=== PATIENT | male | born 1935 | race Caucasian/White ===

== ENCOUNTER → 2019-05-03 | Outpatient (CLI) | payer MEDICARE, OTHER ==
[~2019-05-03] MED LIST: ASPI81CH PO
[2019-05-06 11:07] LABS: M-SPIKE, % Not Observed % (Not Observed); PROTEIN,TOTAL,URINE 4.7 mg/dL (Not Estab.)
== END | disposition home or self-care (01) ==
LOC: LAB 05:00 → LAB SHORT 05:00 → LAB FUT 04-28 13:30
PROVIDERS: Internal Medicine
DX: D47.2 Monoclonal gammopathy (principal)
CPT/HCPCS: 81050; 84166; 86335

== ENCOUNTER 2020-10-20 11:18 | Inpatient (IN) | payer MEDICARE, OTHER ==
[~2020-10-20] VITALS: Ht 167.6 cm; Wt 54.4 kg
[~2020-10-20 11:18] MED LIST changes: +AMOCLA875 PO
[2020-10-20 12:43] LABS: BASOPHILS ABSOLUTE AUTO 0.03 K/mm3 (0.00-0.23); BASOPHILS PERCENT AUTO 0 % (0-2); EOSINOPHILS ABSOLUTE AUTO 0.21 K/mm3 (0.00-0.68); EOSINOPHILS PERCENT AUTO 2 % (0-6); Hematocrit 36.7 % (37.0-53.0); Hemoglobin 11.7 g/dL (13.5-17.5); IMMATURE GRAN ABSOLUTE AUTO 0.07 K/mm3 (0.00-0.10); IMMATURE GRAN PERCENT AUTO 1 % (0-1); LYMPHOCYTES ABSOLUTE AUTO 1.78 K/mm3 (0.84-5.20); LYMPHOCYTES PERCENT AUTO 18 % (21-46); MONOCYTES ABSOLUTE AUTO 0.69 K/mm3 (0.16-1.47); MONOCYTES PERCENT AUTO 7 % (4-13); Mean Corpuscular HGB 30.2 pg (26.0-34.0); Mean Corpuscular HGB Conc 31.9 g/dL (31.5-36.5); Mean Corpuscular Volume 95 fL (80-100); Mean Platelet Volume 10.8 fL (9.1-12.4); NEUTROPHILS ABSOLUTE AUTO 7.03 K/mm3 (1.96-9.15); NEUTROPHILS PERCENT AUTO 72 % (41-73); Platelet Count 651 K/mm3 (150-400); RDW Coefficient Variation 13.8 % (11.7-14.2); RDW Standard Deviation 48.2 fL (35.1-46.3); Red Blood Cell Count 3.87 M/mm3 (4.30-5.90); White Blood Cell Count 9.81 K/mm3 (4.00-11.30)
[2020-10-20 12:58] LABS: International Normalized Ratio 1.23
[2020-10-20 13:07] LABS: Alanine Aminotransfer (ALT/SGP 13 U/L (12-78); Albumin, Blood 2.7 g/dL (3.4-5.0); Albumin/Globulin Ratio 0.6 (0.8-1.8); Alk Phos 65 U/L (50-136); Anion Gap 6 mmol/L (6-16); Aspartate Aminotrans (AST/SGOT 7 U/L (12-37); Bilirubin, Total 0.5 mg/dL (0.1-1.0); Blood Urea Nitrogen 16 mg/dL (8-24); Bun/Creatinine Ratio 21.4 (12.0-20.0); CO2, Blood 29 mmol/L (21-32); Calcium, Blood 8.9 mg/dL (8.5-10.1); Chloride, Blood 104 mmol/L (98-108); Creatinine, Blood 0.75 mg/dL (0.60-1.20); Globulin, Blood 4.6 g/dL (2.2-4.0); Glomerular Filtration Rate >60 (60-); Glucose, Blood 88 mg/dL (70-99); Potassium, Blood 3.3 mmol/L (3.5-5.5); Sodium, Blood 139 mmol/L (136-145); Total Protein, Blood 7.3 g/dL (6.4-8.2)
[2020-10-20 13:17] LABS: Influenza A, PCR NEGATIVE (NEGATIVE); Influenza B, PCR NEGATIVE (NEGATIVE); Resp Syncytial Virus, PCR NEGATIVE (NEGATIVE); SARS-Cov-2 (COVID-19) PCR, MMC NEGATIVE (NEGATIVE)
--- NOTE | 2020-10-20 13:42 | NUR ---
Patient up to Ambulate independently. Gait steady. History, Chart, Medications and Allergies reviewed before start of procedure.Lungs clear T/O to Auscultation. Patient confirms NPO status and agrees with scheduled surgery. ALL BELONINGS GIVEN TO DAUGHTER SONIA. SPOKE TO DR WOOD REGARDING CONCERNS OF PLATELET COUNT. NO NEW ORDERS.
--- NOTE | 2020-10-20 16:27 | NUR ---
FOLOEY DRAINED WHEN HE CAME TO PACU 700 ML OF MOD DARK URINE
--- NOTE | 2020-10-20 16:38 | NUR ---
OSTOMY WITH DEEP RED/PURPLE STOMA SMALL AMOUNHT CLEAR LIQUIED IN OSTOMY BAG
--- NOTE | 2020-10-20 17:40 | NUR ---
ARRIVAL TO UNIT PT ARRIVED TO UNIT VIA GURNEY. PT STOOD AND TRANSFERED TO BED. PT REPORTED SLIGHT ABDOMINAL PAIN WITH MOVEMENT BUT DECLINED NEEDING ANY PAIN MEDICATIONS. PT DENIES ANY SHORTNESS OF BREATH AND REMAINS ON RA. OSTOMY HAS RED LIQUID IN THE BAG, STOMA IS RED AND MOIST. SCANT SS DRAINAGE ON MIDLINE GAUZE. PARTIDA IN PLACE PATENT AND DRAINING. PT AA0X4, ORIENTED TO UNIT AND CALL LIGHT. WILL MONITOR FOR PAIN AND HAND OFF TO ONCOMING NURSE.
[2020-10-21 04:33] LABS: BASOPHILS ABSOLUTE AUTO 0.02 K/mm3 (0.00-0.23); BASOPHILS PERCENT AUTO 0 % (0-2); EOSINOPHILS PERCENT AUTO 0 % (0-6); Hematocrit 34.5 % (37.0-53.0); Hemoglobin 11.1 g/dL (13.5-17.5); IMMATURE GRAN ABSOLUTE AUTO 0.07 K/mm3 (0.00-0.10); IMMATURE GRAN PERCENT AUTO 1 % (0-1); LYMPHOCYTES ABSOLUTE AUTO 1.16 K/mm3 (0.84-5.20); LYMPHOCYTES PERCENT AUTO 9 % (21-46); MONOCYTES PERCENT AUTO 5 % (4-13); Mean Corpuscular HGB 30.2 pg (26.0-34.0); Mean Corpuscular HGB Conc 32.2 g/dL (31.5-36.5); Mean Corpuscular Volume 94 fL (80-100); Mean Platelet Volume 11.1 fL (9.1-12.4); NEUTROPHILS ABSOLUTE AUTO 10.97 K/mm3 (1.96-9.15); NEUTROPHILS PERCENT AUTO 86 % (41-73); Platelet Count 615 K/mm3 (150-400); RDW Coefficient Variation 13.9 % (11.7-14.2); Red Blood Cell Count 3.68 M/mm3 (4.30-5.90); White Blood Cell Count 12.82 K/mm3 (4.00-11.30)
--- NOTE | 2020-10-21 04:40 | NUR ---
SHIFT SUMMARY: PT POD#1 FOR SIGMOID COLECTOMY. SCANT AMOUNT OF SS NOTED ON MIDLINE DRESSING IN BEGINNING OF SHIFT. NEW DRESSING APPLIED USING GAUZE, ABD PAD AND MEDIPORE TAPE. FISTULA SITE TO LLQ DRAINING A YELLOW FOUL SMELLING FLUID. STOMA APPEARS WNL. COLOSTOMY APPLIANCE INTACT WITHOUT LEAKS. DRAINING A SCANT AMOUNT OF BROWNISH RED DRAINAGE. BOWEL TONES PRESENT TO RT QUADRANTS. PT NPO EXCEPT FOR ICE CHIPS. TOLERATING A SMALL AMOUNT. DENIES N/V THIS SHIFT. PAIN HAS BEEN MANAGED WITH 1MG OF DILAUDID PER EMAR. PARTIDA PATENT AND DRAINING CLEAR YELLOW URINE. 825CC EMPTIED THIS MORNING. IVF AND ABX INFUSING PER ORDERS. PT HAS BEEN A&O X4. PLEASANT AND COOPERATIVE WITH CARE. VS WNL T/O SHIFT.
[2020-10-21 04:50] LABS: Anion Gap 6 mmol/L (6-16); Blood Urea Nitrogen 13 mg/dL (8-24); CO2, Blood 29 mmol/L (21-32); Calcium, Blood 7.8 mg/dL (8.5-10.1); Chloride, Blood 105 mmol/L (98-108); Creatinine, Blood 0.68 mg/dL (0.60-1.20); Glomerular Filtration Rate >60 (60-); Glucose, Blood 111 mg/dL (70-99); Potassium, Blood 3.9 mmol/L (3.5-5.5); Sodium, Blood 140 mmol/L (136-145)
--- NOTE | 2020-10-21 18:06 | NUR ---
SHIFT SUMMARY NO ACUTE CHANGES THIS SHIFT. PT POD #1 FOR SIGMOID COLECTOMY AND I&D OF FISTULA. FISTULA SITE DRESSING CHANGED #2 THIS SHIFT. GAUZE WITH TAPE IN PLACE. MEDICATED FOR PAIN #1 THIS SHIFT. GOT UP TO THE CHAIR AND WALKED THE NAQVI W/OUT DIFFICULTY. A/O X4; PLEASANT AND COOPERATIVE WITH CARE. VSS. GETTING IV ANTIBIOTICS. WILL REPORT TO JOEL SHANNON.
--- NOTE | 2020-10-21 20:50 | NUR ---
PT UP IN BATHROOM, HAD DISCONNECTED IV LINE AND REMOVED PARTIDA STAT LOCK. PT SLIGHTLY UNSTEADY ON FEET. PT ASSISTED BACK TO BED, NEW IV TUBING AND STAT LOCK PLACED. PT EDUCATED ON FALL PRECAUTIONS AND IMPORTANCE OF CALLING FOR ASSISTANCE. BED ALARM PLACED FOR SAFETY.
--- NOTE | 2020-10-22 07:10 | NUR ---
POD 2 S/P COLECTOMY+COLOSTOMY. PT VSS T/O NIGHT. DRESSINGS INTACT W/NO VISIBLE DRNG NOTED. COLOSTOMY W/SCANT AMT LIQ BURGUNDY DRNG, NO FLATUS; STOMA WNL. BT ACTIVE, PT SIENNA CL PO, NO N/V. PT DENIED NEED FOR PAIN MEDS UNTIL THIS AM, 0.5MG DILAUDID GIVEN W/REP RELIEF. PARTIDA CATH D/C THIS AM, AWAITING VIANEY VOID. PT WAS INCREASINGLY CONFUSED T/O NIGHT, PT BECAME AGITATED THIS AM, WAS MORE DIFFICULT TO REORIENT. PT ASSISTED W/CALL TO DAUGHTER, HE APPEARED TO CALM DOWN WHILE TALKING TO HER. BEDSIDE REPORT GIVEN TO DAY RN. BED ALRM ON FOR SAFETY.
--- NOTE | 2020-10-22 19:22 | NUR ---
SHIFT SUMMARY NO ACUTE CHANGES THIS SHIFT. POD #2 FOR COLECTOMY WITH COLOSTOMY. DRESSINGS C/D/I. PT HAD EPISODES OF CONFUSION DURING THE NIGHT BUT HAS BEEN A/O X3 DURING THE DAY. SBA TO THE BATHROOM. C/O ISSUES WITH CHOKING/SWALLOWING FOOD. HE SAID THAT THIS ISSUE HAS BEEN PRESENT AT HOME WELL. REPORT GIVEN TO JOEL SHANNON.
[2020-10-23 04:44] LABS: BASOPHILS ABSOLUTE AUTO 0.02 K/mm3 (0.00-0.23); BASOPHILS PERCENT AUTO 0 % (0-2); EOSINOPHILS ABSOLUTE AUTO 0.21 K/mm3 (0.00-0.68); EOSINOPHILS PERCENT AUTO 3 % (0-6); Hematocrit 30.8 % (37.0-53.0); Hemoglobin 9.9 g/dL (13.5-17.5); IMMATURE GRAN ABSOLUTE AUTO 0.05 K/mm3 (0.00-0.10); IMMATURE GRAN PERCENT AUTO 1 % (0-1); LYMPHOCYTES ABSOLUTE AUTO 1.31 K/mm3 (0.84-5.20); LYMPHOCYTES PERCENT AUTO 17 % (21-46); MONOCYTES ABSOLUTE AUTO 0.43 K/mm3 (0.16-1.47); MONOCYTES PERCENT AUTO 6 % (4-13); Mean Corpuscular HGB 30.5 pg (26.0-34.0); Mean Corpuscular HGB Conc 32.1 g/dL (31.5-36.5); Mean Corpuscular Volume 95 fL (80-100); Mean Platelet Volume 10.5 fL (9.1-12.4); NEUTROPHILS ABSOLUTE AUTO 5.74 K/mm3 (1.96-9.15); NEUTROPHILS PERCENT AUTO 74 % (41-73); Platelet Count 592 K/mm3 (150-400); RDW Coefficient Variation 14.1 % (11.7-14.2); Red Blood Cell Count 3.25 M/mm3 (4.30-5.90); White Blood Cell Count 7.76 K/mm3 (4.00-11.30)
[2020-10-23 05:11] LABS: Alanine Aminotransfer (ALT/SGP 13 U/L (12-78); Albumin, Blood 1.8 g/dL (3.4-5.0); Albumin/Globulin Ratio 0.5 (0.8-1.8); Alk Phos 42 U/L (50-136); Anion Gap 3 mmol/L (6-16); Aspartate Aminotrans (AST/SGOT 14 U/L (12-37); Bilirubin, Total 0.8 mg/dL (0.1-1.0); Blood Urea Nitrogen 12 mg/dL (8-24); Bun/Creatinine Ratio 17.2 (12.0-20.0); CO2, Blood 30 mmol/L (21-32); Calcium, Blood 7.6 mg/dL (8.5-10.1); Chloride, Blood 111 mmol/L (98-108); Globulin, Blood 3.3 g/dL (2.2-4.0); Glomerular Filtration Rate >60 (60-); Glucose, Blood 95 mg/dL (70-99); Magnesium, Blood 2.1 mg/dL (1.6-2.4); Phosphorus, Blood 2.7 mg/dL (2.5-4.9); Potassium, Blood 3.5 mmol/L (3.5-5.5); Sodium, Blood 144 mmol/L (136-145); Total Protein, Blood 5.1 g/dL (6.4-8.2)
--- NOTE | 2020-10-23 05:57 | NUR ---
SHIFT SUMMARY LYING IN SEMI FOWLERS WITH EYES CLOSED. AAO X3, HILL, FOLLOWS ALL COMMANDS. HAS RESTED WELL THIS SHIFT. REITERATED NEED TO BURP OSTOMY BAG TO KEEP IT FROM BURSTING AWAY FROM HIS BODY, VOICES UNDERSTATNDING. ABLE TO RETURN DEMONSTRATE HOW TO BURP THE BAG. DRESSING TO MIDLINE ABD IS C/D/I. LLQ DRESSING CHANGED D/T FOUL PURULENT SS DRAINAGE. IVF INFUSING TO RIGHT AC PIV WITH EASE. OCCASIONAL DISTAL OCCLUSION NOTED. ABLE TO AMBULATE TO COMMODE WITH SBA AND WALKER, TOLERATING WELL. SCD'S TO BLE ARE FUNCTIONING PROPERLY. NO SIGNIFICANT CHANGES THIS SHIFT. DENIES PAIN, DISCOMFORT, OR FURTHER NEEDS AT THIS TIME. SAFETY MEASURES IN PLACE. WILL CONTINUE TO MONITOR AND GIVE HAND OFF TO ONCOMING SHIFT USING SBAR DURING BEDSIDE REPORT.
--- NOTE | 2020-10-23 18:14 | NUR ---
SHIFT SUMMARY REPORTS FEELING BETTER BUT NOT MUCH APPETITE. OSTOMY W/ ONLY GAS OUT. PAIN WELL CONTROLLED. NOT INTERESTED IN LEARNING OSTOMY INSTRUCTIONS, BUT GREATLY ENCOURAGED TO PLAY W/ DRY APPLIANCE. HE DID THIS BUT HAD DIFFICULTY UNDERSTANDING HOW TO FOLD BAG UP AFTER BEING EMPTIED.
--- NOTE | 2020-10-24 06:14 | NUR ---
SHIFT SUMMARY PT AOX4. NO SIGNS OF CONFUSION T/O SHIFT. VSS. PT REPORTS MODERATE PAIN, PAIN MANAGED WITH DILAUDID BEFORE BED AND THIS MORNING. PT REPORTS SLEPT GOOD T/O SHIFT. BUT FELT MORE PAINFUL THIS MORNING THAN YESTERDAY. PT DENIES N/V. TOLERATING PO INTAKE. ABX ADMINSTERED ON R AC AND INFUSING FLUIDS. PT HAS OSTOMY, HAS BEEN PRODUCING MINIMAL AMT OF LIQUID STOOL AND ALSO MINIMAL GAS IN HIS OSTOMY BAG. VOIDING ADEQUATELY DENIES DIFFICULTY. CALL LIGHT WITHIN REACH.
--- NOTE | 2020-10-24 18:43 | NUR ---
SHIFT SUMMARY PT PLEASANT. UP TO BATHROOM EASILY. UP TO CHAIR FOR PART OF DAY. STILL UNINTERESTED IN LEARNING ABOUT OSTOMY. IMPORTANCE OF THIS EXPLAINED TO FAMILY & PT.
--- NOTE | 2020-10-25 05:20 | NUR ---
OSTOMY FOUND TO BE LEAKING WELL FISTULA SITE. ALL DRESSINGS AND OSTOMY APPLIANCE REMOVED, ABDOMEN CLEANSED, AND FRESH DRESSINGS AND APPLIANCE APPLIED. OSTOMY EDUCATION PROVIDED, PT ATTENTIVE AND ENGAGED. FRESH GOWN PROVIDED.
--- NOTE | 2020-10-25 17:06 | NUR ---
Shift Summary A/Ox3, occassional forgetfulness. POD #5 Independent in room. Make needs known. Wound care completed BID per order, once by Dr. Caruso and once by this RN. Patient tolerated both well. 2nd dressing was fully saturated with yellow/brownish drainage. Received in report from night RN that ostomy appliance was changed 0530 this AM, contents were formed/soft black/brown stools. Discussed with MEHNAZ DEE setting up HH and plan for d/c tomorrow. Dressing to midline abdomen C/D/I. Appetite remains poor. Medicated for 6/10 abdominal pain per EMAR with good effect. No erythema, swelling, foul odor from fistula site. Worked with PT today. No acute changes. Will report to oncoming RN.
--- NOTE | 2020-10-26 04:34 | NUR ---
SUMMARY PT WITH PASTEY STOOL.SLIGHT SWELLING TO STOMA. PT HOPING TO GO HOME IN AM.
--- NOTE | 2020-10-26 17:55 | NUR ---
PT IS AOX4 AND COOPERATIVE OF CARE. PT HAS BEEN STANDBY TO CHAIR AND BED. PT CALLS APPROPRIATELY. COLOSTOMY BAG EMPTIED AND FLUSHED IN THE AM AND BURPED X1. PT HAD ABODOMINAL BANDAGED CHANGED AND WOUND FLUSHED AND REBANDAGED BY DR GAMBOA IN THE AM AND BY THIS NEIGHBORHOOD PLANNER 1700. NEW BANDAGE IN PLACE. WILL CONTINUE TO MONITOR. PT TREATED FOR ABDOMINAL PAIN PER EMAR. WILL CONTINUE TO MONITOR.
--- NOTE | 2020-10-27 07:10 | NUR ---
SUMMARY PT SLEPT WELL. UP IN CHAIR THIS AM.
--- NOTE | 2020-10-27 17:26 | NUR ---
SHIFT SUMMARY PT IS POD#7 FROM COLECTOMY WITH OSTOMY. DISCHARGE PLANNING IN PROCESS. PT NEEDS OSTOMY EDUCATION PRIOR TO DISCHARGE. PT HAS BEEN A SBA WHEN OOB. PAIN HAS BEEN MANAGED WITH PO PAIN MEDICATION. PT'S STILL HAS A DECREASED APPETITE. VSS. WILL MONITOR UNTIL REPORT TO NOC RN.
--- NOTE | 2020-10-28 06:17 | NUR ---
SHIFT SUMMARY POD#9. AAOX4. DISCOMFORT CONTROLLED WITH X1 NORCO YESTARDAY EVENING. NO NAUSEA/EMESIS. ABD INCISION WITH CHLOE CLEAN/APPROXIMATED. OSTOMY SECURE WITH MODERATE AMOUNT OF FORMED BROWN STOOL OUT. GOOD PO INTAKE. PT RESTED WELL T/O NIGHT. PT AWOKE EASILY THIS MORNING, DENIES FURTHER NEEDS REQUESTING MORE SLEEP. NO ACUTE CHANGES OVER NIGHT. CALL LIGHT CURRENTLY IN REACH.
--- NOTE | 2020-10-29 07:42 | NUR ---
SHIFT SUMMARY PT RESTED WELL T/O NIGHT. AAOX4. DISCOMFORT CONTROLLED WITH X1 NORCO YESTARDAY PM. NO NAUSEA/EMESIS. ABD INCISION WITH CHLOE C/D/I. FISTULA FLUSHED + NEW DRESSING PLACED AT 2100 PER ORDERS. OSTOMY WITH X1 EMPTY, MODERATE AMOUNT OF DARK BROWN STOOL. NO ACUTE CHANGES OVER NIGHT. PT CURRENTLY RESTING IN BED WITH CALL LIGHT IN REACH.
--- NOTE | 2020-10-29 19:14 | NUR ---
SHIFT SUMMARY PT HAS DONE WELL THIS SHIFT. PT STILL WITH MINIMUL PARTICIPATION WITH OSTOMY CARE, DID ATTEMPT TO BURP OSTOMY BUT UNABLE TO RE-SEAL. FISTULA FLUSHED PER WOUND CARE ORDERES AND DRESSING CHANGED TWICE THIS SHIFT. INDEPENDENT IN ROOM. NO PAIN.
--- NOTE | 2020-10-30 03:29 | NUR ---
SHIFT SUMMARY POD#10 SIGMOID COLECTOMY WITH OSTOMY. AAOX4. DISCOMFORT CONTROLLED WITH X1 NORCO YESTARDAY EVENING. NO NAUSEA/EMESIS. ABD INCISION WITH CHLOE C/D/I. OSTOMY SECURE WITH SCANT AMOUNT OF FORMED STOOL. GOOD PO INTAKE + OUTPUT. PT RESTED WELL T/O SHIFT. NO ACUTE CHANGES OVER NIGHT. PT CURRENTLY RESTING IN BED WITH CALL LIGHT IN REACH.
--- NOTE | 2020-10-30 10:46 | NUR ---
FISTULA DSG FLUSHED AND CHANGED BY DR. GAMBOA THIS AM.
--- NOTE | 2020-10-30 15:45 | NUR ---
PT'S DAUGHTER'S PHONE NUMBER (SONIA) .
--- NOTE | 2020-10-30 17:59 | NUR ---
OOB TO CHAIR MOST OF THE DAY, TOLERATING WELL, DSG C/D/I, OSTOMY W/ SOFT FORMED STOOL, DENIES ANY PAIN TODAY, REPORTS TOLERATING DIET WELL, AWAITING DC PLAN FROM DC FIELD ASSESSORVANDANA TO DISCUSS OPTIONS WITH DAUGHTER SONIA, SONIA'S PHONE NUMBER GIVEN TO VANDANA.
--- NOTE | 2020-10-31 06:20 | NUR ---
SHIFT SUMMARY POD11 LAP COLECTOMY W/ LUQ OSTOMY AND LLQ FISTULA, FISTULA IRRIGATED PER ORDER, A/O X4, VSS, TOLERATING DIET, NO COMPLAINTS OF PAIN T/O SHIFT, VOIDING WELL, OSTOMY HAS GOOD OUTPUT, NO ACUTE EVENTS THIS SHIFT. CALL LIGHT IN REACH, WILL CONTINUE TO MONITOR AND REPORT TO ONCOMING DAY RN.
--- NOTE | 2020-10-31 10:27 | NUR ---
OSTOMY APPLIANCE CHANGED THIS AM, PT TEACHING DONE ON EMPTYING AND APPLICATION OF APPLIANCE, PT DOESN'T SEEM INTERESTED STATES "I CAN'T DO IT" LLQ FISTULA WOUND FLUSHED AND DRESSING CHANGED ORDERED, CONT. TO DRAIN MODERATE AMOUNT OF GARIBAY PURULENT FOUL SMELLING DRAINAGE, INSTRUCTED ON FLUSHING WOUND AND CHANGING DRESSING BUT PT DOESN'T SEEM TOO INTERESTED IN DOING THE DSG CHANGE STATES "i CAN'T TAKE CARE OF THIS AT HOME."
--- NOTE | 2020-10-31 11:59 | NUR ---
OSTOMY TEACHING DISCUSSED OSTOMY TEACHING WITH PT AGAIN, PT SEEMS MORE WILLING TO LEARN, SAT ON TOILET AND INSTRUCTED ON HOW TO EMPTY OSTOMY AND APPLIANCE PLACEMENT, PT WAS ABLE TO EMPTY BAG WITH SOME ASSISTANCE, HAD SOME DIFFICULTY WITH CLEANING UP AND NEEDED ASSISTANCE, PT ENCOURAGED TO CALL SON TO COME IN TO BE INCLUDED IN OSTOMY TEACHING, STATES HE WILL GIVE HIM A CALL, PT CURRENTLY SITTING ON CHAIR AND WATCHING OSTOMY VIDEOS.
--- NOTE | 2020-10-31 15:09 | NUR ---
AMBULATED DOWN THE NAQVI W/ PHYS. TX, TOLERATED WELL, PT NOW SITTING ON CHAIR.
--- NOTE | 2020-11-01 04:12 | NUR ---
SHIFT SUMMARY: COLOSTOMY PATIENT IS ALERT AND ORIENTED X4 WHILE AWAKE. HE HAS BEEN ASLEEP FOR MAJORITY OF THE SHIFT. VS ARE WNL AND IS ON RA. PATIENT DENIES PAIN DURING THIS SHIFT. OSTOMY HAS BROWN LIQUID OUTPUT AND HAS GAS BUILT UP IN BAG AT TIMES. FISTULA DRESSING WAS CHANGED AT THE BEGINNING OF SHIFT WITH WET TO DRY DRESSING AND A DROP OF IODINE. GARIBAY OUTPUT WAS NOTED ON FISTULA CHANGE WHEN CHANGING DRESSING. HE IS TOLERATING PO INTAKE AND IS VOIDING. HE IS CURRENTLY LAYING IN BED WITH EYES CLOSED. CALL LIGHT WITHIN REACH. THE PLAN IS TO DISCHARGE HOME TODAY WITH HOME HEALTH.
--- NOTE | 2020-11-01 16:19 | NUR ---
Discharge Summary A/Ox3. Discharging to home with CANELO (Vicky). Fistula to LLQ abdomen irrigated x 1, dressing changed with medipore tape. Had patient change ostomy appliance with step by step instructions and supervision by this RN. Patient verbalized understanding and motivated to learn by asking questions. Barrier to this was poor eye sight even with corrective glasses on. Also provided education to son (Isaiah) at the bedside RE ostomy and wound care. Questions answered. Reviewed discharge paperwork with both, copy provided. F/U appointment with Dr. Caruso made and patient aware of time/date. Personal belongings sent home along with wound care supplies and additional ostomy appliance. Independent in room. Escorted out by GAS MAKER via w/c.
== END 2020-11-01 16:52 | disposition home health service (06) | DRG 330 ==
LOC: ER 11:18 → SURS 13:02
PROVIDERS: Emergency Medicine; ADMIT Surgery
PROC: 0D1M0Z4 Bypass Descending Colon to Cutaneous, Open Approach (ICD-10-PCS; principal; 2020-10-20 13:00)
PROC: 0DBN0ZZ Excision of Sigmoid Colon, Open Approach (ICD-10-PCS; 2020-10-20 13:00)
DX: K57.20 Diverticulitis of large intestine with perforation and abscess without bleeding (principal); K63.2 Fistula of intestine; L02.211 Cutaneous abscess of abdominal wall; Z20.822 Contact with and (suspected) exposure to COVID-19; E78.5 Hyperlipidemia, unspecified; K43.9 Ventral hernia without obstruction or gangrene
CPT/HCPCS: 0241U; 36415; 74177; 80048; 80053; 83735; 84100; 85025; 85610; 85730; 88307; 92610; 93005; 93010; 96374; 96376; 97110; 97116; 97161; 97530; 99284-25; A9270; J0295; J0694; J1100; J1170; J1650; J2370; J2405; J2704; J2710; J3010; J7030; J7120; Q9967

== ENCOUNTER → 2021-03-29 | Outpatient (CLI) | payer MEDICARE, OTHER ==
[2021-04-02 16:08] LABS: A/G RATIO 1.1 (0.7-1.7); ALBUMIN 3.4 g/dL (2.9-4.4); ALPHA-1-GLOBULIN 0.2 g/dL (0.0-0.4); ALPHA-2-GLOBULIN 0.7 g/dL (0.4-1.0); BETA GLOBULIN 0.9 g/dL (0.7-1.3); GAMMA GLOBULIN 1.3 g/dL (0.4-1.8); GLOBULIN, TOTAL 3.2 g/dL (2.2-3.9); IMMUNOGLOBULIN A, QN, SERUM 146 mg/dL (61-437); IMMUNOGLOBULIN G, QN, SERUM 1280 mg/dL (603-1613); IMMUNOGLOBULIN M, QN, SERUM 129 mg/dL (15-143); M-SPIKE 0.5 g/dL (Not Observed); PROTEIN, TOTAL, SERUM 6.6 g/dL (6.0-8.5)
== END | disposition home or self-care (01) ==
LOC: LAB 11:29 → LAB SHORT 11:29
PROVIDERS: Internal Medicine
DX: D47.2 Monoclonal gammopathy (principal)
CPT/HCPCS: 36415; 82784; 83883; 84155; 84165; 86334

== ENCOUNTER → 2021-04-06 | Outpatient (CLI) | payer MEDICARE, OTHER ==
[2021-04-10 14:08] LABS: M-SPIKE, % Not Observed % (Not Observed); PROTEIN,TOTAL,URINE <4.0 mg/dL (Not Estab.)
== END | disposition home or self-care (01) ==
LOC: LAB SHORT 15:40 → LAB 15:40
PROVIDERS: Internal Medicine
DX: R79.89 Other specified abnormal findings of blood chemistry (principal)
CPT/HCPCS: 81050; 84156; 84166

== ENCOUNTER 2022-02-19 14:44 | Emergency (ER) | payer MEDICARE, OTHER ==
[~2022-02-19] VITALS: Ht 167.6 cm; Wt 54.4 kg
[2022-02-19 15:48] LABS: BASOPHILS ABSOLUTE AUTO 0.01 K/mm3 (0.00-0.23); BASOPHILS PERCENT AUTO 0 % (0-2); EOSINOPHILS PERCENT AUTO 0 % (0-6); Hematocrit 43.1 % (37.0-53.0); Hemoglobin 14.1 g/dL (13.5-17.5); IMMATURE GRAN ABSOLUTE AUTO 0.03 K/mm3 (0.00-0.10); IMMATURE GRAN PERCENT AUTO 0 % (0-1); LYMPHOCYTES ABSOLUTE AUTO 1.95 K/mm3 (0.84-5.20); LYMPHOCYTES PERCENT AUTO 18 % (21-46); MONOCYTES ABSOLUTE AUTO 1.21 K/mm3 (0.16-1.47); MONOCYTES PERCENT AUTO 11 % (4-13); Mean Corpuscular HGB 30.7 pg (26.0-34.0); Mean Corpuscular HGB Conc 32.7 g/dL (31.5-36.5); Mean Corpuscular Volume 94 fL (80-100); Mean Platelet Volume 11.2 fL (9.1-12.4); NEUTROPHILS ABSOLUTE AUTO 7.73 K/mm3 (1.96-9.15); NEUTROPHILS PERCENT AUTO 71 % (41-73); Platelet Count 362 K/mm3 (150-400); RDW Coefficient Variation 14.2 % (11.7-14.2); RDW Standard Deviation 49.1 fL (35.1-46.3); Red Blood Cell Count 4.59 M/mm3 (4.30-5.90); White Blood Cell Count 10.93 K/mm3 (4.00-11.30)
[2022-02-19 16:01] LABS: Albumin, Blood 3.1 g/dL (3.4-5.0); Albumin/Globulin Ratio 0.8 (0.8-1.8); Bilirubin, Total 0.7 mg/dL (0.1-1.0); Bun/Creatinine Ratio 28.9 (12.0-20.0); Calcium, Blood 8.4 mg/dL (8.5-10.1); Creatinine, Blood 0.8 mg/dL (0.60-1.20); Potassium, Blood 3.3 mmol/L (3.5-5.5); Total Protein, Blood 7.1 g/dL (6.4-8.2)
== END 2022-02-19 21:07 | disposition home or self-care (01) ==
LOC: ER 14:44
PROVIDERS: Student in an Organized Health Care Education/Training Program
DX: R11.10 Vomiting, unspecified (principal); R53.1 Weakness; Z93.3 Colostomy status; Z88.5 Allergy status to narcotic agent
CPT/HCPCS: 36415; 80053; 85025

== ENCOUNTER 2023-03-06 07:45 | Day surgery (SDC) | payer MEDICARE, OTHER | END 2023-03-06 22:52 | disposition home or self-care (01) | LOC: WOUND 07:45 | DX: S31.104D Unspecified open wound of abdominal wall, left lower quadrant without penetration into peritoneal cavity, subsequent encounter (principal); X58.XXXD Exposure to other specified factors, subsequent encounter; K63.2 Fistula of intestine; Z93.3 Colostomy status | CPT/HCPCS: G0463 ==

== ENCOUNTER 2023-03-13 04:32 | Day surgery (SDC) | payer MEDICARE, OTHER | END 2023-03-13 23:03 | disposition home or self-care (01) | LOC: WOUND 04:32 | DX: S31.104D Unspecified open wound of abdominal wall, left lower quadrant without penetration into peritoneal cavity, subsequent encounter (principal); K63.2 Fistula of intestine; Z90.49 Acquired absence of other specified parts of digestive tract; Z93.3 Colostomy status | CPT/HCPCS: A9270; G0463 ==

== ENCOUNTER 2023-04-10 00:39 | Day surgery (SDC) | payer MEDICARE, OTHER | END 2023-04-10 22:51 | disposition home or self-care (01) | LOC: WOUND 00:39 | DX: S31.104D Unspecified open wound of abdominal wall, left lower quadrant without penetration into peritoneal cavity, subsequent encounter (principal); K63.2 Fistula of intestine; Z93.3 Colostomy status | CPT/HCPCS: G0463 ==

== ENCOUNTER 2023-05-08 02:13 | Day surgery (SDC) | payer MEDICARE, OTHER | END 2023-05-08 22:41 | disposition home or self-care (01) | LOC: WOUND 02:13 | DX: S31.104D Unspecified open wound of abdominal wall, left lower quadrant without penetration into peritoneal cavity, subsequent encounter (principal); X58.XXXD Exposure to other specified factors, subsequent encounter; K63.2 Fistula of intestine; Z93.3 Colostomy status ==

== ENCOUNTER 2023-06-05 03:23 | Day surgery (SDC) | payer MEDICARE, OTHER | END 2023-06-05 22:44 | disposition home or self-care (01) | LOC: WOUND 03:23 | DX: T81.31XD Disruption of external operation (surgical) wound, not elsewhere classified, subsequent encounter (principal); K63.2 Fistula of intestine; Z93.3 Colostomy status; Y83.8 Other surgical procedures as the cause of abnormal reaction of the patient, or of later complication, without mention of misadventure at the time of the procedure | CPT/HCPCS: G0463 ==

== ENCOUNTER 2023-07-03 02:22 | Day surgery (SDC) | payer MEDICARE, OTHER | END 2023-07-03 22:53 | disposition home or self-care (01) | LOC: WOUND 02:22 | DX: S31.104D Unspecified open wound of abdominal wall, left lower quadrant without penetration into peritoneal cavity, subsequent encounter (principal); X58.XXXD Exposure to other specified factors, subsequent encounter; K63.2 Fistula of intestine | CPT/HCPCS: G0463 ==

== ENCOUNTER 2023-08-07 04:29 | Day surgery (SDC) | payer MEDICARE, OTHER | END 2023-08-07 23:09 | disposition home or self-care (01) | LOC: WOUND 04:29 | DX: S31.104D Unspecified open wound of abdominal wall, left lower quadrant without penetration into peritoneal cavity, subsequent encounter (principal); X58.XXXD Exposure to other specified factors, subsequent encounter; K63.2 Fistula of intestine; Z93.3 Colostomy status | CPT/HCPCS: G0463 ==

== ENCOUNTER 2023-09-04 07:39 | Day surgery (SDC) | payer MEDICARE, OTHER | END 2023-09-04 23:05 | disposition home or self-care (01) | LOC: WOUND 07:39 | DX: S31.104D Unspecified open wound of abdominal wall, left lower quadrant without penetration into peritoneal cavity, subsequent encounter (principal); K63.2 Fistula of intestine; Z93.3 Colostomy status | CPT/HCPCS: G0463 ==

== ENCOUNTER 2023-10-02 01:37 | Day surgery (SDC) | payer MEDICARE, OTHER | END 2023-10-02 22:56 | disposition home or self-care (01) | LOC: WOUND 01:37 | DX: S31.104D Unspecified open wound of abdominal wall, left lower quadrant without penetration into peritoneal cavity, subsequent encounter (principal); K63.2 Fistula of intestine; Z90.49 Acquired absence of other specified parts of digestive tract; Z93.3 Colostomy status | CPT/HCPCS: G0463 ==

== ENCOUNTER 2024-02-26 02:53 | Day surgery (SDC) | payer MEDICARE, OTHER | END 2024-02-26 23:18 | disposition home or self-care (01) | LOC: WOUND 02:53 | DX: S31.104A Unspecified open wound of abdominal wall, left lower quadrant without penetration into peritoneal cavity, initial encounter (principal); K63.2 Fistula of intestine; Z93.3 Colostomy status; X58.XXXA Exposure to other specified factors, initial encounter | CPT/HCPCS: G0463 ==

== ENCOUNTER 2024-05-18 01:52 | Day surgery (SDC) | payer MEDICARE, OTHER | END 2024-05-18 23:13 | disposition home or self-care (01) | LOC: WOUND 01:52 | DX: K63.2 Fistula of intestine (principal); S31.104A Unspecified open wound of abdominal wall, left lower quadrant without penetration into peritoneal cavity, initial encounter; Z93.3 Colostomy status; X58.XXXA Exposure to other specified factors, initial encounter | CPT/HCPCS: G0463 ==